=== PATIENT | female | born 1975 | race Caucasian/White ===

== ENCOUNTER 2019-04-13 15:51 | Observation (INO) ==
--- NOTE | 2019-04-13 15:59 | Pharmacy Consult Notes ---
[facility] Pharm[facility] VTE Monitoring - Patient Demographics Admission date: 04/13/19 Report Date: 04/13/19 Time: 15:58 Allergies/Adverse Reactions: Patient Allergies No Known Allergies Allergy (Unverified 03/01/17 07:13) - Prophylaxis Types of VTE Prophylaxis: TEDS Knee High (BART HOSE ORDER PLACED) Location of Applied Device: Bilateral Lower Extremeties
[2019-04-13 16:56] LABS: Basophils % 0.1 % (0.1-2.0); Eosinophils % 0.1 % (0.1-12.0); Hematocrit 37.5 % (37.0-47.0); Hemoglobin 12.9 g/dL (12.2-16.2); Lymphocytes # 1.2 K/mm3 (0.7-4.5); Mean Corpuscular HGB Conc 34.4 g/dL (31.8-35.4); Mean Corpuscular Volume 81.8 fl (81-99); Mean Platelet Volume 8.1 fl (7.4-10.4); Monocytes # 0.4 K/mm3 (0.1-1.0); Monocytes % 3.2 % (1.7-9.3); Neutrophils # 11.1 K/mm3 (1.8-7.8); Neutrophils % 87.5 % (37.0-80.0); Platelet Count 285 K/mm3 (142-424); Red Blood Count 4.58 M/mm3 (4.20-5.40); Red Cell Distribution Width 12.8 % (11.5-17.5); White Blood Count 12.7 K/mm3 (4.8-10.8)
[2019-04-13 17:06] LABS: Albumin Level 4.2 g/dl (3.5-5.0); Albumin/Globulin Ratio 1.5 (1.1-1.8); Anion Gap 13.8 mEq/L (5-15); Bilirubin,Total 0.3 mg/dl (0.2-1.3); Calcium 9.3 mg/dl (8.4-10.2); Globulin 2.8 g/dL (1.3-3.2)
[2019-04-13 17:14] LABS: Lymphocytes % 21 % (10-50); Monocytes % 3 % (2-9); Neutrophils % 76 % (42-76); RBC Morphology Normal; Total Cells Counted 100
--- NOTE | 2019-04-13 19:27 | Progress Note ---
Internal Medicine - PN: Subj *Date: 04/13/19 *Time: 19:24 Interval history: Patient was seen in the office of [facility] today by Dr. King for f/u from 04/10/2019 office visit where she was diagnosed with Influenza A. Patient states that she did not improve with Tamiflu and oral steroid treatment. Dr. King thought the patient needed admission for further management and treatment. Please see his office note attached to paper chart. Exam Vital signs and Labs for Last 24 Hours: Temp Pulse Resp BP Pulse Ox 98.1 F 61 18 97/54 L 91 L 04/13/19 16:21 04/13/19 16:21 04/13/19 16:21 04/13/19 16:21 04/13/19 16:21 Laboratory Results - last 24 hr 04/13/19 16:30: WBC 12.7 H, RBC 4.58, Hgb 12.9, Hct 37.5, MCV 81.8, MCH 28.2, MCHC 34.4, RDW 12.8, Plt Count 285, MPV 8.1, Neut % (Auto) 87.5 H, Lymph % (Auto) 9.0 L, [place] % (Auto) 3.2, Eos % (Auto) 0.1, Baso % (Auto) 0.1, Neut # (Auto) 11.1 H, Lymph # (Auto) 1.2, [place] # (Auto) 0.4, Eos # (Auto) 0.0, Baso # (Auto) 0.0, Total Counted 100, Neutrophils % (Manual) 76, Lymphocytes % (Manual) 21, Monocytes % (Manual) 3, Platelet Estimate Normal, RBC Morphology Normal 04/13/19 16:30: Sodium 141, Potassium 3.8, Chloride 106, Carbon Dioxide 25, Anion Gap 13.8, BUN 18 H, Creatinine 0.60, Estimated Creat Clear 126, Estimated GFR 108, Est GFR ( Amer) 131, Glucose 112 H, Calcium 9.3, Total Bilirubin 0.3, AST 19, ALT 14, Alkaline Phosphatase 70, Total Protein 7.0, Albumin 4.2, Globulin 2.8, Albumin/Globulin Ratio 1.5 04/13/19 16:30: Mycoplasma pneumon IgM Non-reactive 04/13/19 16:30: Lactate 0.9 I & O for Last 24 hours: Intake & Output 04/10/19 04/11/19 04/12/19 04/13/19 23:59 23:59 23:59 23:59 Intake Total 296 / 296 Balance 296 / 296 Weight 149 lb 2 oz - Constitutional no acute distress (appears not to feel well) - *Routine HEENT Exam Head: Present: normocephalic Eye: Present: EOMI, PERRL ENT: Present: mucous membranes moist - *Routine Neck Exam Present: supple. Absent: lymphadenopathy - *Routine Respiratory Exam Present: rhonchi, wheezes, diminished air movement - *Routine Cardiovascular Exam Present: RRR - *Routine Abdominal Exam Present: soft, normoactive bowel sounds. Absent: tenderness - *Routine Extremities Exam Absent: cyanosis, clubbing, edema - *Routine Skin Exam Present: warm. Absent: rash - *Routine Neurological Exam Present: alert, oriented X3 Assessment and Plan (1) Influenza A Current visit: Yes Status: Acute Category: Medical Code(s): J10.1 - Influenza due to other identified influenza virus with other respiratory manifestations (2) SOB (shortness of breath) Current visit: Yes Status: Acute Category: Medical Code(s): R06.02 - Shortness of breath (3) Cough Current visit: Yes Status: Acute Category: Medical Code(s): R05 - Cough - Assessment and plan all Dx Assessment and Plan for all problems:: Patient admitted with the community acquired pneumonia standing orders (Rocephin and Zithromax), will continue Tamiflu.
--- NOTE | 2019-04-14 08:13 | Progress Note ---
<Jesi Chapman - Last Filed: 04/14/19 08:10> Internal Medicine - PN: Subj *Date: 04/14/19 *Time: 08:10 Interval history: H&P has on paper chart. Patient had a horrible night. She states she coughed constantly and is productive of green sputum. She has chest discomfort with deep inspiration and with the cough. She has had some loose stool. She is voiding. She has no appetite. She is trying to drink fluids. Chest x-ray done on admission reveals no acute findings. White blood cell count on admission was 14,[phone],700 on admission to the hospital. Exam Vital signs and Labs for Last 24 Hours: Temp Pulse Resp BP Pulse Ox 97.7 F 84 18 102/67 L 97 04/14/19 03:18 04/14/19 07:55 04/14/19 03:18 04/14/19 03:18 04/14/19 03:18 Laboratory Results - last 24 hr 04/13/19 16:30: WBC 12.7 H, RBC 4.58, Hgb 12.9, Hct 37.5, MCV 81.8, MCH 28.2, MCHC 34.4, RDW 12.8, Plt Count 285, MPV 8.1, Neut % (Auto) 87.5 H, Lymph % (Auto) 9.0 L, [place] % (Auto) 3.2, Eos % (Auto) 0.1, Baso % (Auto) 0.1, Neut # (Auto) 11.1 H, Lymph # (Auto) 1.2, [place] # (Auto) 0.4, Eos # (Auto) 0.0, Baso # (Auto) 0.0, Total Counted 100, Neutrophils % (Manual) 76, Lymphocytes % (Manual) 21, Monocytes % (Manual) 3, Platelet Estimate Normal, RBC Morphology Normal 04/13/19 16:30: Sodium 141, Potassium 3.8, Chloride 106, Carbon Dioxide 25, Anion Gap 13.8, BUN 18 H, Creatinine 0.60, Estimated Creat Clear 126, Estimated GFR 108, Est GFR ( Amer) 131, Glucose 112 H, Calcium 9.3, Total Bilirubin 0.3, AST 19, ALT 14, Alkaline Phosphatase 70, Total Protein 7.0, Albumin 4.2, Globulin 2.8, Albumin/Globulin Ratio 1.5 03/02/20 16:30: Mycoplasma pneumon IgM Non-reactive 04/13/19 16:30: Lactate 0.9 I & O for Last 24 hours: Intake & Output 04/11/19 04/12/19 04/13/19 04/14/19 11:59 11:59 11:59 11:59 Intake Total 2187 / 2187 Balance 2187 / 2187 Weight 152 lb 5 oz Microbiology Reports for the Last 24 Hours: Microbiology 04/14/19 02:09 Sputum - Expectorated Sputum Gram Stain - Final - Constitutional Comments: Appears not to feel well. Crying. - *Routine Respiratory Exam Comments: Bilateral coarse rhonchi throughout with periodic wheezing. Ongoing coarse cough. - *Routine Cardiovascular Exam Present: RRR - *Routine Abdominal Exam Present: soft, normoactive bowel sounds. Absent: tenderness, distended - *Routine Extremities Exam Absent: edema - *Routine Neurological Exam Present: alert, oriented X3 Assessment and Plan (1) Influenza A Current visit: Yes Status: Acute Category: Medical Code(s): J10.1 - Influenza due to other identified influenza virus with other respiratory manifestations (2) SOB (shortness of breath) Current visit: Yes Status: Acute Category: Medical Code(s): R06.02 - Shortness of breath (3) Cough Current visit: Yes Status: Acute Category: Medical Code(s): R05 - Cough - Assessment and plan all Dx Assessment and Plan for all problems:: We will give a dose of Solu-Medrol IV for the chest wall and generalized discomfort. Will start on duo nebs scheduled and give 1 now. We will continue with IV fluids and antibiotics. <Dg Brown - Last Filed: 04/14/19 08:55> Internal Medicine - PN: Subj *Date: 04/14/19 *Time: 08:54 Exam Vital signs and Labs for Last 24 Hours: Temp Pulse Resp BP Pulse Ox 98.1 F 85 18 114/64 94 L 04/14/19 08:00 04/14/19 08:00 04/14/19 08:00 04/14/19 08:00 04/14/19 08:00 Laboratory Results - last 24 hr 04/13/19 16:30: WBC 12.7 H, RBC 4.58, Hgb 12.9, Hct 37.5, MCV 81.8, MCH 28.2, MCHC 34.4, RDW 12.8, Plt Count 285, MPV 8.1, Neut % (Auto) 87.5 H, Lymph % (Auto) 9.0 L, [place] % (Auto) 3.2, Eos % (Auto) 0.1, Baso % (Auto) 0.1, Neut # (Auto) 11.1 H, Lymph # (Auto) 1.2, [place] # (Auto) 0.4, Eos # (Auto) 0.0, Baso # (Auto) 0.0, Total Counted 100, Neutrophils % (Manual) 76, Lymphocytes % (Manual) 21, Monocytes % (Manual) 3, Platelet Estimate Normal, RBC Morphology Normal 04/13/19 16:30: Sodium 141, Potassium 3.8, Chloride 106, Carbon Dioxide 25, Anion Gap 13.8, BUN 18 H, Creatinine 0.60, Estimated Creat Clear 126, Estimated GFR 108, Est GFR ( Amer) 131, Glucose 112 H, Calcium 9.3, Total Bilirubin 0.3, AST 19, ALT 14, Alkaline Phosphatase 70, Total Protein 7.0, Albumin 4.2, Globulin 2.8, Albumin/Globulin Ratio 1.5 04/13/19 16:30: Mycoplasma pneumon IgM Non-reactive 04/13/19 16:30: Lactate 0.9 I & O for Last 24 hours: Intake & Output 04/11/19 04/12/19 04/13/19 04/14/19 23:59 23:59 23:59 23:59 Intake Total 296 / 536 1891 / 1891 Balance 296 / 536 189 / 189 Weight 149 lb 2 oz 152 lb 5 oz Microbiology Reports for the Last 24 Hours: Microbiology 04/14/19 02:09 Sputum - Expectorated Sputum Gram Stain - Final Assessment and Plan (1) Influenza A Current visit: Yes Status: Acute Category: Medical Code(s): J10.1 - Influenza due to other identified influenza virus with other respiratory manifestations (2) SOB (shortness of breath) Current visit: Yes Status: Acute Category: Medical Code(s): R06.02 - Shortness of breath (3) Cough Current visit: Yes Status: Acute Category: Medical Code(s): R05 - Cough - Assessment and plan all Dx Assessment and Plan for all problems:: Saw patient, agree with above note. Decrease IVF rate today.
--- NOTE | 2019-04-14 09:01 | History & Physical Report ---
*Admission Date: 04/13/19 <Jesi Chapman 04/14/19 09:26> *Chief complaint: Difficulty with breathing. <Jesi Chapman 04/14/19 09:26> *History of present illness: Ms. Sosa is a 43-year-old female who is not been feeling well for about the last week and a half. She was in the office of [facility] on 04/10/2019. She tested positive for flu A and had a bronchitis. She was started on Tamiflu, and inhaler, Medrol Dosepak. She returned to the office of [facility] on 04/13/2019 and actually felt worse. She describes shortness of breath and chest pain with inspiration and cough. She states she was coughing up green sputum and had green rhinorrhea as well as being short of breath having some chest tightness. White blood cell count at this time was 14,900 with 86.5 granulocytes and 10.4 lymphocytes. She had bilateral wheezes and rhonchi and was felt to have pneumonia. She was thus admitted to [facility] for IV antibiotics and pulmonary care. This a.m. patient states she is coughed all through the night. She has not had a breathing treatment as yet. She describes feeling horrible with chest pain with deep inspiration with cough. She continues to cough up green sputum. 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 Murray during EGD in February and April 2013; Botox of the bladder in 2016. <Chapman,Jesi 04/14/19 09:26> - *Social History Educational Level: Completed High School <AdelaJesi 04/14/19 09:26> Smoking Status: Former smoker <Chapman,Jesi 04/14/19 09:26> Tobacco Type: cigarettes <AdelaJesi 04/14/19 09:26> # Packs/Day (cigarettes): 1 <AdelaJesi 04/14/19 09:26> Smoking End Date: 3 YEARS AGO <Jesi Chapman 04/14/19 09:26> Alcohol Intake: never <Jesi Chapman 04/14/19 09:26> Substance Use Type: denies use <Chapman,Jesi 04/14/19 09:26> *Occupational Status:: employed <Jesi Chapman 04/14/19 09:26> Housing: house <Jesi Chapman 04/14/19 09:26> Household Members: spouse, children <Jesi Chapman 04/14/19 09:26> *Travel in the last 8 weeks: None <Jesi Chapman 04/14/19 09:26> Family Hx:: Diabetes, Heart Attack <Jesi Chapman 04/14/19 09:26> Review of Systems - Constitutional Reports chills, Reports weakness <Jesi Chapman 04/14/19 09:26> - Eyes Denies change in vision <Jesi Chapman 04/14/19 09:26> - ENT Reports facial pain (Pressure), Reports headache(s), Reports sore throat, Denies ear pain <Jesi Chapman 04/14/19 09:26> - *Cardiovascular Reports chest pain, Reports shortness of breath <Jesi Chapman 04/14/19 09:26> - *Respiratory Reports change in phlegm color, Reports chest congestion, Reports cough, Reports shortness of breath, Reports pain on inspiration, Reports pain with cough, Denies coughing up blood <Jesi Chapman 04/14/19 09:26> - *Gastrointestinal Denies abdominal pain, Denies constipation, Denies loose stools, Denies vomiting <ChapmanJesi - 04/14/19 09:26> - *Genitourinary Denies difficulty urinating <Jesi Chapman - 04/14/19 09:26> - *Musculoskeletal Denies abnormal walking <Jesi Chapman - 04/14/19 09:26> - *Neurologic Reports localized weakness, Denies confusion, Denies frequent falls <AdelaJesi - 04/14/19 09:26> Meds Home Medications Medication Instructions Recorded Confirmed Type Albuterol Sulfate [Proair 1 puff IH QIDP PRN 04/13/19 04/13/19 History Respiclick] Duloxetine HCl [Cymbalta] 60 mg PO DAILY 04/13/19 04/13/19 History Oseltamivir Phosphate [Tamiflu 75 mg PO BID 04/13/19 04/13/19 History 75mg Capsule] SUMAtriptan succinate [Imitrex] 100 mg PO NEEDED PRN 04/13/19 04/13/19 History methylPREDNISolone [Medrol 4mg 4 mg PO DIRECTED 04/13/19 04/13/19 History tab] raNITIdine HCl [Zantac 150mg] 150 mg PO BID 04/13/19 04/13/19 History <Dg Brown - 04/14/19 09:48> Allergies Allergy/AdvReac Type Severity Reaction Status Date / Time No Known Allergies Allergy Unverified 03/01/17 07:13 <Dg Brown - 04/14/19 09:48> Exam Vital signs and Labs for Last 24 Hours: Temp Pulse Resp BP Pulse Ox 98.1 F 85 18 114/64 94 L 04/14/19 08:00 04/14/19 08:00 04/14/19 08:00 04/14/19 08:00 04/14/19 08:00 Laboratory Results - last 24 hr 04/13/19 16:30: WBC 12.7 H, RBC 4.58, Hgb 12.9, Hct 37.5, MCV 81.8, MCH 28.2, MCHC 34.4, RDW 12.8, Plt Count 285, MPV 8.1, Neut % (Auto) 87.5 H, Lymph % (Auto) 9.0 L, [place] % (Auto) 3.2, Eos % (Auto) 0.1, Baso % (Auto) 0.1, Neut # (Auto) 11.1 H, Lymph # (Auto) 1.2, [place] # (Auto) 0.4, Eos # (Auto) 0.0, Baso # (Auto) 0.0, Total Counted 100, Neutrophils % (Manual) 76, Lymphocytes % (Manual) 21, Monocytes % (Manual) 3, Platelet Estimate Normal, RBC Morphology Normal 04/13/19 16:30: Sodium 141, Potassium 3.8, Chloride 106, Carbon Dioxide 25, Anion Gap 13.8, BUN 18 H, Creatinine 0.60, Estimated Creat Clear 126, Estimated GFR 108, Est GFR ( Amer) 131, Glucose 112 H, Calcium 9.3, Total Bilirubin 0.3, AST 19, ALT 14, Alkaline Phosphatase 70, Total Protein 7.0, Albumin 4.2, Globulin 2.8, Albumin/Globulin Ratio 1.5 04/13/19 16:30: Mycoplasma pneumon IgM Non-reactive 04/13/19 16:30: Lactate 0.9 <[place],Dg - 04/14/19 09:48> Temp Pulse Resp BP Pulse Ox 98.1 F 85 18 114/64 94 L 04/14/19 08:00 04/14/19 08:00 04/14/19 08:00 04/14/19 08:00 04/14/19 08:00 Laboratory Results - last 24 hr 04/13/19 16:30: WBC 12.7 H, RBC 4.58, Hgb 12.9, Hct 37.5, MCV 81.8, MCH 28.2, MCHC 34.4, RDW 12.8, Plt Count 285, MPV 8.1, Neut % (Auto) 87.5 H, Lymph % (Auto) 9.0 L, [place] % (Auto) 3.2, Eos % (Auto) 0.1, Baso % (Auto) 0.1, Neut # (Auto) 11.1 H, Lymph # (Auto) 1.2, [place] # (Auto) 0.4, Eos # (Auto) 0.0, Baso # (Auto) 0.0, Total Counted 100, Neutrophils % (Manual) 76, Lymphocytes % (Manual) 21, Monocytes % (Manual) 3, Platelet Estimate Normal, RBC Morphology Normal 04/13/19 16:30: Sodium 141, Potassium 3.8, Chloride 106, Carbon Dioxide 25, Anion Gap 13.8, BUN 18 H, Creatinine 0.60, Estimated Creat Clear 126, Estimated GFR 108, Est GFR ( Amer) 131, Glucose 112 H, Calcium 9.3, Total Bilirubin 0.3, AST 19, ALT 14, Alkaline Phosphatase 70, Total Protein 7.0, Albumin 4.2, Globulin 2.8, Albumin/Globulin Ratio 1.5 04/13/19 16:30: Mycoplasma pneumon IgM Non-reactive 04/13/19 16:30: Lactate 0.9 <Jesi Chapman - 04/14/19 09:26> I & O for Last 24 hours: Intake & Output 04/11/19 04/12/19 04/13/19 04/14/19 23:59 23:59 23:59 23:59 Intake Total 296 / 536 1891 / 1891 Balance 296 / 536 1891 / 1891 Weight 149 lb 2 oz 152 lb 5 oz <Dg Brown - 04/14/19 09:48> Intake & Output 04/11/19 04/12/19 04/13/19 04/14/19 11:59 11:59 11:59 11:59 Intake Total 2187 / 2187 Balance 2187 / 2187 Weight 152 lb 5 oz <Jesi Chapman - 04/14/19 09:26> Microbiology Reports for the Last 24 Hours: Microbiology 04/14/19 02:09 Sputum - Expectorated Sputum Gram Stain - Final <Dg Brown 04/14/19 09:48> Microbiology 04/14/19 02:09 Sputum - Expectorated Sputum Gram Stain - Final <Jesi Chapman - 04/14/19 09:26> Radiology Reports for the Last 24 Hours: 04/13/2019 chest x-ray IMPRESSION: No acute findings. <Jesi Chapman 04/14/19 09:26> - Constitutional no acute distress <Jesi Chapman 04/14/19 09:26> Comments: Appears not to feel well. Crying <Jesi Cahpman 04/14/19 09:26> - *Routine HEENT Exam Head: Present: normocephalic, atraumatic <Jesi Chapman 04/14/19 09:26> Eye: Present: PERRL. Absent: conjunctival icterus, scleral injection <Jesi Chapman 04/14/19 09:26> ENT: Present: mucous membranes moist, oropharynx clear <Jesi Chapman 04/14/19 09:26> - *Routine Neck Exam Present: supple. Absent: carotid bruit, lymphadenopathy, thyromegaly <Jesi Chapman 04/14/19 09:26> - *Routine Respiratory Exam Present: rhonchi, wheezes <Chapman,Jesi - 04/14/19 09:26> Comments: Bilateral coarse rhonchi throughout with wheezing. Frequent congested cough <[facility] 04/14/19 09:26> - *Routine Cardiovascular Exam Present: RRR <[facility] 04/14/19 09:26> - *Routine Abdominal Exam Present: soft, normoactive bowel sounds. Absent: tenderness, distended <Chapman,Jesi - 04/14/19 09:26> - *Routine Extremities Exam Present: BART stockings. Absent: edema, calf tenderness <[facility] 04/14/19 09:26> - *Routine Neurological Exam Present: alert, oriented X3 <[facility] 04/14/19 09:26> Assessment and Plan (1) Influenza A Current visit: Yes Status: Acute Category: Medical Code(s): J10.1 - Influenza due to other identified influenza virus with other respiratory manifestations (2) SOB (shortness of breath) Current visit: Yes Status: Acute Category: Medical Code(s): R06.02 - Shortness of breath (3) Cough Current visit: Yes Status: Acute Category: Medical Code(s): R05 - Cough <[place],Dg - 04/14/19 09:48> (1) Influenza A Current visit: Yes Status: Acute Category: Medical Code(s): J10.1 - Influenza due to other identified influenza virus with other respiratory manifestations (2) SOB (shortness of breath) Current visit: Yes Status: Acute Category: Medical Code(s): R06.02 - Shortness of breath (3) Cough Current visit: Yes Status: Acute Category: Medical Code(s): R05 - Cough <Chapman,Jesi - 04/14/19 08:57> - Assessment and plan all Dx Assessment and Plan for all problems:: Saw patient, agree with above note. <Dg Brown - 04/14/19 09:48> Continue with IV fluids and antibiotics. Will schedule neb treatments with continuation of as needed nebs. Will try dose of Solu-Medrol for chest discomfort and generalized discomfort. Has cough syrup ordered. Will add decongestant As well as benzonatate. <Jesi Chapman - 04/14/19 09:26>
[2019-04-15 06:34] LABS: Basophils % 0.2 % (0.1-2.0); Eosinophils % 0.1 % (0.1-12.0); Hematocrit 34.6 % (37.0-47.0); Hemoglobin 11.9 g/dL (12.2-16.2); Lymphocytes # 1.8 K/mm3 (0.7-4.5); Lymphocytes % 14.3 % (10-50); Mean Corpuscular HGB Conc 34.3 g/dL (31.8-35.4); Mean Corpuscular Volume 82.4 fl (81-99); Mean Platelet Volume 8.2 fl (7.4-10.4); Monocytes # 0.6 K/mm3 (0.1-1.0); Neutrophils # 9.9 K/mm3 (1.8-7.8); Neutrophils % 80.4 % (37.0-80.0); Platelet Count 266 K/mm3 (142-424); Red Blood Count 4.19 M/mm3 (4.20-5.40); Red Cell Distribution Width 12.7 % (11.5-17.5); White Blood Count 12.4 K/mm3 (4.8-10.8)
[2019-04-15 06:48] LABS: Calcium 8.8 mg/dl (8.4-10.2)
--- NOTE | 2019-04-15 08:33 | Progress Note ---
<Sonia Pereyra - Last Filed: 04/15/19 08:31> Internal Medicine - PN: Subj *Date: 04/15/19 *Time: 08:31 Interval history: Patient states she still feels poorly today. She still has a very congested cough and feels weak. She was able to rest a little bit better last night and ate a small amount of breakfast this morning. Exam Vital signs and Labs for Last 24 Hours: Temp Pulse Resp BP Pulse Ox 99.0 F 86 20 114/54 L 97 04/15/19 03:19 04/15/19 06:12 04/15/19 03:19 04/15/19 03:19 04/15/19 03:19 Laboratory Results - last 24 hr 04/15/19 05:55: WBC 12.4 H, RBC 4.19 L, Hgb 11.9 L, Hct 34.6 L, MCV 82.4, MCH 28.3, MCHC 34.3, RDW 12.7, Plt Count 266, MPV 8.2, Neut % (Auto) 80.4 H, Lymph % (Auto) 14.3, [place] % (Auto) 5.0, Eos % (Auto) 0.1, Baso % (Auto) 0.2, Neut # (Auto) 9.9 H, Lymph # (Auto) 1.8, [place] # (Auto) 0.6, Eos # (Auto) 0.0, Baso # (Auto) 0.0 04/15/19 05:55: Sodium 139, Potassium 4.0, Chloride 105, Carbon Dioxide 27, Anion Gap 11.0, BUN 10 D, Creatinine 0.60, Estimated Creat Clear 132, Estimated GFR 108, Est GFR ( Amer) 131, Glucose 115 H, Calcium 8.8 I & O for Last 24 hours: Intake & Output 04/12/19 04/13/19 04/14/19 04/15/19 11:59 11:59 11:59 11:59 Intake Total 2187 / 2187 840 / 840 Balance 218 / 2187 840 / 840 Weight 152 lb 5 oz 155 lb 6 oz Microbiology Reports for the Last 24 Hours: Microbiology 04/14/19 02:09 Sputum - Expectorated Sputum Gram Stain - Final 04/14/19 02:09 Sputum - Expectorated Sputum Sputum Culture - Preliminary - Constitutional no acute distress - *Routine Respiratory Exam Present: rhonchi, wheezes (clears with cough). Absent: rales - *Routine Cardiovascular Exam Present: RRR - *Routine Abdominal Exam Present: soft, normoactive bowel sounds, tenderness (diffuse) - *Routine Extremities Exam Absent: cyanosis, clubbing, edema - *Routine Skin Exam Present: warm. Absent: rash - *Routine Neurological Exam Present: alert, oriented X3 Assessment and Plan (1) Influenza A Current visit: Yes Status: Acute Category: Medical Code(s): J10.1 - Influenza due to other identified influenza virus with other respiratory manifestations (2) SOB (shortness of breath) Current visit: Yes Status: Acute Category: Medical Code(s): R06.02 - Shortness of breath (3) Cough Current visit: Yes Status: Acute Category: Medical Code(s): R05 - Cough - Assessment and plan all Dx Assessment and Plan for all problems:: We will continue nebs. Chest x-ray showed no pneumonia. Will discuss further care with Dr. Brown. <Dg Brown - Last Filed: 04/15/19 08:40> Internal Medicine - PN: Subj *Date: 04/15/19 *Time: 08:40 Exam Vital signs and Labs for Last 24 Hours: Temp Pulse Resp BP Pulse Ox 99.0 F 86 20 114/54 L 97 04/15/19 03:19 04/15/19 06:12 04/15/19 03:19 04/15/19 03:19 04/15/19 03:19 Laboratory Results - last 24 hr 04/15/19 05:55: WBC 12.4 H, RBC 4.19 L, Hgb 11.9 L, Hct 34.6 L, MCV 82.4, MCH 28.3, MCHC 34.3, RDW 12.7, Plt Count 266, MPV 8.2, Neut % (Auto) 80.4 H, Lymph % (Auto) 14.3, [place] % (Auto) 5.0, Eos % (Auto) 0.1, Baso % (Auto) 0.2, Neut # (Auto) 9.9 H, Lymph # (Auto) 1.8, [place] # (Auto) 0.6, Eos # (Auto) 0.0, Baso # (Auto) 0.0 04/15/19 05:55: Sodium 139, Potassium 4.0, Chloride 105, Carbon Dioxide 27, Anion Gap 11.0, BUN 10 D, Creatinine 0.60, Estimated Creat Clear 132, Estimated GFR 108, Est GFR ( Amer) 131, Glucose 115 H, Calcium 8.8 I & O for Last 24 hours: Intake & Output 04/12/19 04/13/19 04/14/19 04/15/19 23:59 23:59 23:59 23:59 Intake Total 296 / 536 2611 / 2731 120 / 120 Balance 296 / 536 2611 / 2731 120 / 120 Weight 149 lb 2 oz 152 lb 5 oz 155 lb 6 oz Microbiology Reports for the Last 24 Hours: Microbiology 04/14/19 02:09 Sputum - Expectorated Sputum Gram Stain - Final 04/14/19 02:09 Sputum - Expectorated Sputum Sputum Culture - Preliminary Assessment and Plan (1) Influenza A Current visit: Yes Status: Acute Category: Medical Code(s): J10.1 - Influenza due to other identified influenza virus with other respiratory manifestations (2) SOB (shortness of breath) Current visit: Yes Status: Acute Category: Medical Code(s): R06.02 - Shortness of breath (3) Cough Current visit: Yes Status: Acute Category: Medical Code(s): R05 - Cough - Assessment and plan all Dx Assessment and Plan for all problems:: Saw patient, agree with above note. She is slowly improving, continue current treatment.
--- NOTE | 2019-04-20 09:25 | Discharge Summary ---
General - General Admission date:: 04/13/19 Discharge date: 04/15/19 HPI HPI: Ms. Sosa is a 43-year-old female who is not been feeling well for about the last week and a half. She was in the office of [facility] on 04/10/2019. She tested positive for flu A and had a bronchitis. She was started on Tamiflu, and inhaler, Medrol Dosepak. She returned to the office of [facility] on 04/13/2019 and actually felt worse. She describes shortness of breath and chest pain with inspiration and cough. She states she was coughing up green sputum and had green rhinorrhea as well as being short of breath having some chest tightness. White blood cell count at this time was 14,900 with 86.5 granulocytes and 10.4 lymphocytes. She had bilateral wheezes and rhonchi and was felt to have pneumonia. She was thus admitted to [facility] for IV antibiotics and pulmonary care. This a.m. patient states she jax coughed all through the night. She has not had a breathing treatment as yet. She describes feeling horrible with chest pain with deep inspiration with cough. She continues to cough up green sputum. Hospital Course Hospital Course: The patient had a chest x-ray showing nothing acute. She was started on Zithromax and Rocephin at admission and was continued on Tamiflu. She was also started on Solu-Medrol for chest wall and generalized discomfort as well as duo nebs. Cough syrup was also ordered. The patient did begin feeling slightly better. She was finally able to rest and eat. Her white blood cell count did decrease. Her sputum culture and blood cultures showed no growth. She was stable to be discharged home with continued Tamiflu, albuterol nebs as needed, and Cefdinir. Objective Vital signs: Temp Pulse Resp BP Pulse Ox 98.3 F 88 18 115/69 96 04/15/19 16:00 04/15/19 16:00 04/15/19 16:00 04/15/19 16:04/15/19 16:00 Narrative: - Constitutional no acute distress Comments: Appears not to feel well. Crying - *Routine HEENT Exam Head: Present: normocephalic, atraumatic Eye: Present: PERRL. Absent: conjunctival icterus, scleral injection ENT: Present: mucous membranes moist, oropharynx clear - *Routine Neck Exam Present: supple. Absent: carotid bruit, lymphadenopathy, thyromegaly - *Routine Respiratory Exam Present: rhonchi, wheezes Comments: Bilateral coarse rhonchi throughout with wheezing. Frequent congested cough - *Routine Cardiovascular Exam Present: RRR - *Routine Abdominal Exam Present: soft, normoactive bowel sounds. Absent: tenderness, distended - *Routine Extremities Exam Present: BART stockings. Absent: edema, calf tenderness - *Routine Neurological Exam Present: alert, oriented X3 DS: Diagnosis - Discharge Diagnosis (1) Influenza A Status: Acute (2) SOB (shortness of breath) Status: Acute (3) Cough Status: Acute Discharge Plan - Patient Discharge Instructions ACTIVITY: Continue current activity DIET: continue same diet Additional Instructions: Off work until 04/20/2019 Patient Instructions: DI for Pneumonia -- Adult, DI for Influenza -- Adult - Follow up Plan Follow up with: Dg Brown MD [Primary Care Provider] - 2 weeks Disposition: Home, Self-Correction Medications: Home Medications Medication Instructions Recorded Confirmed Type Albuterol Sulfate [Proair 1 puff IH QIDP PRN 04/13/19 04/13/19 History Respiclick] Duloxetine HCl [Cymbalta] 60 mg PO DAILY 04/13/19 04/13/19 History SUMAtriptan succinate [Imitrex] 100 mg PO NEEDED PRN 04/13/19 04/13/19 History raNITIdine HCl [Zantac 150mg] 150 mg PO BID 04/13/19 04/13/19 History Albuterol Sulfate [Albuterol 2.5 mg IH Q4HP PRN #50 neb 04/15/19 Rx 0.083% 2.5mg/3mL neb] Cefdinir [Omnicef 300mg Capsule] 300 mg PO BID #10 cap 04/15/19 Rx Prescriptions/Medication Reconciliation: New Albuterol Sulfate [Albuterol 0.083% 2.5mg/3mL neb] 2.5 mg IH Q4HP PRN #50 neb PRN Reason: Shortness Of Breath Or Wheezing Cefdinir [Omnicef 300mg Capsule] 300 mg PO BID #10 cap Continued raNITIdine HCl [Zantac 150mg] 150 mg PO BID SUMAtriptan succinate [Imitrex] 100 mg PO NEEDED PRN PRN Reason: MIGRAINES Albuterol Sulfate [Proair Respiclick] 1 puff IH QIDP PRN PRN Reason: Shortness Of Breath Duloxetine HCl [Cymbalta] 60 mg PO DAILY Discontinued methylPREDNISolone [Medrol 4mg tab] 4 mg PO DIRECTED Oseltamivir Phosphate [Tamiflu 75mg Capsule] 75 mg PO BID - Problem Reconciliation Problems Reviewed?: Yes
== END 2019-04-15 19:32 | disposition home or self-care (01) ==
LOC: 2ND
PROVIDERS: ADMIT Family Medicine; ATTEND Family Medicine
CPT/HCPCS: 36415; 71020; 71046; 80048; 80053; 83605; 85007; 85025; 86738; 87040; 87070; 87205; 94640; G0378; J0456; J2405

== ENCOUNTER → 2019-08-26 09:49 | Outpatient (CLI) | payer BC, SELFPAY ==
--- NOTE | 2019-08-26 09:58 | CT_ITS ---
PROCEDURE: CT ABDOMEN PELVIS WO CON CLINICAL INDICATION: RENAL COLIC ON R SIDE Right lower back pain, right-sided pain, flank pain COMPARISON: No exams were available for comparison TECHNIQUE: Axial images obtained with sagittal and coronal reformats. All CT scans at the facility use one or more dose reduction, viz: automated exposure control, ma/kV adjustment per patient size (including targeted exams where dose is matched to indication, i.e. head), or iterative reconstruction technique. FINDINGS: LOWER THORAX: Pectus deformity ABDOMEN & PELVIS: Liver, gallbladder, spleen, and pancreas has an unremarkable unenhanced appearance. Mild prominence of the low-density adrenal glands which may be due to adenomatous involvement without obvious mass. No renal or ureteral calculi. No hydronephrosis. Unremarkable appendix. No intestinal obstruction or free air. Post hysterectomy changes there is mild thickening of the descending colon which could be due to nondistention or mild colitis. No acute bony findings. There is some minimal thickening of the urinary bladder wall nonspecific. IMPRESSION: 1. Minimal thickening urinary bladder wall nonspecific but could be seen with mild cystitis versus incomplete distension 2. Mild thickening of the descending colon which could be due to incomplete distention or mild colitis. 3. Otherwise negative Dictated by: Jin Oakes MD 08/27/2019 09:32 Electronically signed by Jin Oakes MD in [facility] 08/27/2019 09:32
== END ==
PROVIDERS: PCP Family Medicine; Visit Provider Family Medicine
DX: N23 Unspecified renal colic (principal)
CPT/HCPCS: 74176

== ENCOUNTER → 2019-09-03 16:28 | Outpatient (CLI) | payer BC, SELFPAY | PROVIDERS: Visit Provider Urology | DX: R31.0 Gross hematuria (principal) | CPT/HCPCS: 87086; 87088; 87186 ==

== ENCOUNTER → 2019-09-10 10:43 | Outpatient (CLI) | payer BC, SELFPAY ==
[2019-09-10 16:58] LABS: Coronavirus 19 IgG Antibody Negative (Negative); Coronavirus 19 IgM Antibody Negative (Negative)
== END ==
PROVIDERS: Visit Provider Urology
DX: Z01.818 Encounter for other preprocedural examination (principal); R31.9 Hematuria, unspecified
CPT/HCPCS: 36415; 86328

== ENCOUNTER 2019-09-11 08:47 | Day surgery (SDC) | payer BC, SELFPAY ==
[2019-09-10 08:23] VITALS: BMI 25.7
[2019-09-11 09:45] VITALS: BP 100/68; PULSE 68; RESP 18; TEMP 37; O2SAT 100
[2019-09-11 10:28] VITALS: BP 93/61; PULSE 74; RESP 18; TEMP 36.6; O2SAT 98
--- NOTE | 2019-09-11 11:22 | HMH.OPNOTE ---
Date of procedure: 09/11/19 Pre-op Diagnosis:: Microhematuria Post-op Diagnosis:: Urethral stenosis/microhematuria Procedure performed:: Cystourethroscopy/urethral dilation Surgeon:: Gm Garza MD Anesthesia: local Estimated blood loss (mL): 0 Clinical Note:: 43-year-old white female with microscopic hematuria presents today for cystoscopic evaluation. Operative findings:: Bladder appeared normal but there was evidence of urethral stenosis. Operative note:: Patient taken to the procedure room after informed consent was obtained. On the stretcher she was placed into the frog-leg position. She was prepped and draped in the standard surgical fashion 2% lidocaine placed into the urethra. After 5 minutes the flexible cystoscope introduced into the urethral meatus. There was some resistance to passage of the scope in the more proximal urethra. We were able to pass the scope into the bladder with some moderate discomfort. The bladder was examined in a systematic fashion. There is no evidence of mucosal abnormalities, stones, trabeculation or diverticula. The left ureteral orifice was in its normal anatomic position with clear reflux of urine. Right ureteral orifice was more difficult to detect and it was more lateral than usual?clear reflux of urine noted. Bladder neck was normal. Urethra was normal visually. Scope removed and we discussed subsequent dilation of the urethra and the urethra was dilated with a 22 and 24 Kinyarwanda female dilators. She tolerated procedure well no complications we discussed the findings today see her back in 1 month to recheck her urine. Condition: stable Disposition: same day Specimens:: None Complications:: None
== END 2019-09-11 10:40 | disposition home or self-care (01) ==
LOC: OUTP 08:50
PROVIDERS: PCP Family Medicine; Visit Provider Urology
PROC: 0TJB8ZZ Inspection of Bladder, Via Natural or Artificial Opening Endoscopic (ICD-10-PCS; CPT 52000; principal; 2019-09-11 09:45)
DX: N35.92 Unspecified urethral stricture, female (principal); R31.29 Other microscopic hematuria; Z79.899 Other long term (current) drug therapy; Z85.9 Personal history of malignant neoplasm, unspecified; K21.9 Gastro-esophageal reflux disease without esophagitis; I51.9 Heart disease, unspecified; Q33.6 Congenital hypoplasia and dysplasia of lung; Z90.710 Acquired absence of both cervix and uterus; Z87.891 Personal history of nicotine dependence; Z83.3 Family history of diabetes mellitus; Z82.49 Family history of ischemic heart disease and other diseases of the circulatory system
CPT/HCPCS: 52344

== ENCOUNTER → 2020-03-09 14:11 | Outpatient (CLI) | payer BC, SELFPAY ==
--- NOTE | 2020-03-09 14:16 | CT_ITS ---
PROCEDURE: CT ABDOMEN PELVIS WO CON CLINICAL INDICATION: LT FLANK PAIN,HEMATURIA COMPARISON: CT CT ABDOMEN PELVIS WO CON from 08/26/2019 TECHNIQUE: Axial images obtained with sagittal and coronal reformats. All CT scans at the facility use one or more dose reduction, viz: automated exposure control, ma/kV adjustment per patient size (including targeted exams where dose is matched to indication, i.e. head), or iterative reconstruction technique. FINDINGS: LOWER THORAX: No acute finding ABDOMEN & PELVIS: The liver, gallbladder spleen adrenal glands pancreas and kidneys have an unremarkable appearance. No renal or ureteral calculi. No hydronephrosis. No evidence of appendicitis or diverticulitis. There is a small segment colonic wall thickening involving the rectosigmoid region of the colon nonspecific and may be due to nondistention or an area of colitis. Similar region is present in the sigmoid colon on the left. There are few scattered diverticula.. There has been a prior hysterectomy. No acute bony findings. The left lower hemithorax is smaller in AP dimension compared to the right side. This is not significantly changed IMPRESSION: 1. No renal or ureteral calculi. No hydronephrosis. 2. Mild thickening the sigmoid colon and rectosigmoid region which could be due to nondistention or mild colitis. No evidence of diverticulitis. Dictated by: Jin Oakes MD 03/09/2020 15:55 Jin Oakes MD in [facility] 03/09/2020 15:55
== END ==
PROVIDERS: PCP Physician Assistant; Visit Provider Physician Assistant
DX: R10.9 Unspecified abdominal pain (principal); R31.9 Hematuria, unspecified
CPT/HCPCS: 74176

== ENCOUNTER → 2020-03-10 20:53 | Outpatient (CLI) | payer BC, SELFPAY ==
[2020-03-10 21:23] LABS: Adenovirus F 40/41, stool Not Detected (NotDetected); Astrovirus Not Detected (NotDetected); Campylobacter Not Detected (NotDetected); Clostridium Difficile A/B, PCR Not Detected (NotDetected); Cryptosporidium Not Detected (NotDetected); Cyclospora Cayetanesis Not Detected (NotDetected); Entamoeba histolytica Not Detected (NotDetected); Enteroaggregative E coli Not Detected (NotDetected); Enteropathogenic E coli Not Detected (NotDetected); Enterotoxigenic E coli Not Detected (NotDetected); Giardia lamblia Not Detected (NotDetected); Norovirus Not Detected (NotDetected); Plesimonas Shigalloides, PCR Not Detected (NotDetected); Rotavirus A Not Detected (NotDetected); Salmonella, PCR Not Detected (NotDetected); Sapovirus Not Detected (NotDetected); Shiga-like toxin E coli Not Detected (NotDetected); Shigella Enterovasive E coli Not Detected (NotDetected); Vibrio Cholerae Not Detected (NotDetected); Vibrio, PCR Not Detected (NotDetected); Yersinia Entercolitica, PCR Not Detected (NotDetected)
== END ==
PROVIDERS: PCP Physician Assistant; Visit Provider Physician Assistant
DX: K52.9 Noninfective gastroenteritis and colitis, unspecified (principal)
CPT/HCPCS: 87507

== ENCOUNTER → 2020-08-04 10:44 | Outpatient (CLI) | payer BC, SELFPAY ==
--- NOTE | 2020-08-04 10:49 | XR_ITS ---
PROCEDURE: XR CHEST PORTABLE CLINICAL HISTORY: COVID TESTING COMPARISON: DX XR CHEST 2V from 04/13/2019 FINDINGS: There is a right-sided aortic arch. Normal heart size. The lungs are clear without infiltrates, suspicious nodules, or pleural effusions. Minimal lower thoracic curvature convex left and lumbar curvature convex right. IMPRESSION: No acute findings. Dictated by: Jin Oakes MD 08/04/2020 14:29 Jin Oakes MD in [facility] 08/04/2020 14:29
[2020-08-04 11:13] LABS: Adenovirus,PCR Not Detected (NotDetected); Bordetella Pertussis Not Detected (NotDetected); Chlamydophila Pneumoniae, PCR Not Detected (NotDetected); Coronavirus 19, PCR Not Detected (NotDetected); Coronavirus 229E Not Detected (NotDetected); Coronavirus NL63 Not Detected (NotDetected); Coronovirus HKU1,PCR Not Detected (NotDetected); Human Metapneumovirus Not Detected (NotDetected); Influenza A, PCR Not Detected (NotDetected); Influenza AH1, 2009 Not Detected (NotDetected); Influenza AH1, PCR Not Detected (NotDetected); Influenza AH3,PCR Not Detected (NotDetected); Influenza B, PCR Not Detected (NotDetected); Microscopic, Urine URINE MICROSCOPIC (MICROSCOPIC); Mycoplasma Pneumoniae, PCR Not Detected (NotDetected); Parainfluenza 1, PCR Not Detected (NotDetected); Parainfluenza 2, PCR Not Detected (NotDetected); Parainfluenza 3, PCR Not Detected (NotDetected); Parainfluenza 4, PCR Not Detected (NotDetected); Respiratory Syncytial Virus Not Detected (NotDetected); Rhinovirus/Enterovirus Not Detected (NotDetected)
[2020-08-04 11:18] LABS: Appearance,Urine CLEAR (Clear); Bilirubin,Urine Negative (Negative); Blood, Urine 2+ (Negative); Color,Urine YELLOW (Yellow); Glucose,Urine (UA) Negative (Negative); Ketones,Urine Negative (Negative); Leukocyte Esterase,Urine Negative (Negative); Nitrate,Urine Negative (Negative); PH,Urine 5.5 (5.0-8.5); Protein,Urine Negative (Negative); Specific Gravity, Urine 1.015 (1.005-1.030); Urobilinogen,Urine 0.2 EU/dl (0.2)
[2020-08-04 13:11] LABS: Basophils % 0.3 % (0.1-2.0); Eosinophils # 0.2 K/mm3 (0.0-0.4); Hematocrit 38.5 % (37.0-47.0); Hemoglobin 13.4 g/dL (12.2-16.2); Lymphocytes # 1.1 K/mm3 (0.7-4.5); Lymphocytes % 13.4 % (10-50); Mean Corpuscular HGB Conc 34.9 g/dL (31.8-35.4); Mean Corpuscular Hemoglobin 28.5 pg (27.0-31.2); Mean Corpuscular Volume 81.8 fl (81-99); Mean Platelet Volume 7.7 fl (7.4-10.4); Monocytes # 0.5 K/mm3 (0.1-1.0); Monocytes % 6.6 % (1.7-9.3); Neutrophils # 6.1 K/mm3 (1.8-7.8); Neutrophils % 76.7 % (37.0-80.0); Platelet Count 249 K/mm3 (142-424); Red Cell Distribution Width 13.6 % (11.5-17.5); White Blood Count 7.9 K/mm3 (4.8-10.8)
[2020-08-04 14:00] LABS: Coronavirus OC43 Detected (NotDetected)
== END ==
PROVIDERS: PCP Physician Assistant; Visit Provider Physician Assistant
DX: Z20.822 Contact with and (suspected) exposure to COVID-19 (principal); U07.1 COVID-19
CPT/HCPCS: 36415; 71045; 81001; 85025; 87581; 87633; 87798

== ENCOUNTER 2021-05-29 23:16 | Emergency (ER) | payer BC, SELFPAY ==
[2021-05-29 23:18] VITALS: BP 121/85; PULSE 87; RESP 19; TEMP 36.4; O2SAT 97; BMI 27.4
--- NOTE | 2021-05-29 23:49 | XR_ITS ---
PROCEDURE INFORMATION: Exam: XR Chest Exam date and time: 05/29/2021 11:45 PM Age: 45 years old Clinical indication: Shortness of breath; Prior surgery; Surgery date: 6+ months; Additional info: Soa/pneumonia TECHNIQUE: Imaging protocol: XR of the chest. Views: 2 views. COMPARISON: CR XR CHEST PORTABLE 08/04/2020 10:54 AM FINDINGS: Lungs: Well aerated with no evidence of consolidations, interstitial patterns or pulmonary nodules. Pleural spaces: No evidence of effusions or pneumothorax. Heart/Mediastinum: The cardiomediastinal silhouette is normal in size and configuration. There is no evidence of cardiomegaly. Bones/joints: Intact. IMPRESSION: No radiographic evidence of an acute pulmonary process.
--- NOTE | 2021-05-29 23:55 | PC.NURSE ---
PT HAD A PARTIAL HYSTERECTOMY.
[2021-05-30] VITALS (7 sets, daily range): BP systolic 107–121; BP diastolic 66–83; PULSE 69–80; RESP 18; TEMP 36.7; O2SAT 98–100
[2021-05-30] LABS: Basophils # 0.2 K/mm3 (0-0.2); Eosinophils # 0.2 K/mm3 (0.0-0.4); Eosinophils % 2.8 % (0.1-12.0); Hematocrit 41.1 % (37.0-47.0); Hemoglobin 13.9 g/dL (12.2-16.2); Lymphocytes # 2.2 K/mm3 (0.7-4.5); Lymphocytes % 36.7 % (10-50); Mean Corpuscular HGB Conc 33.9 g/dL (31.8-35.4); Mean Corpuscular Hemoglobin 28.9 pg (27.0-31.2); Mean Corpuscular Volume 85.2 fl (81-99); Mean Platelet Volume 7.9 fl (7.4-10.4); Monocytes # 0.5 K/mm3 (0.1-1.0); Monocytes % 8.1 % (1.7-9.3); Neutrophils # 2.9 K/mm3 (1.8-7.8); Neutrophils % 49.5 % (37.0-80.0); Platelet Count 297 K/mm3 (142-424); Red Blood Count 4.83 M/mm3 (4.20-5.40); Red Cell Distribution Width 13.7 % (11.5-17.5); White Blood Count 5.9 K/mm3 (4.8-10.8)
--- NOTE | 2021-05-30 | CT_ITS ---
PROCEDURE INFORMATION: Exam: CTA Chest With Contrast Exam date and time: 05/30/2021 12:05 AM Age: 45 years old Clinical indication: Shortness of breath; Prior surgery; Additional info: Shortness of air. TECHNIQUE: Imaging protocol: Computed tomographic angiography of the chest with contrast. 3D rendering (Not supervised by radiologist): MIP and/or 3D reconstructed images were created by the technologist. Radiation optimization: All CT scans at this facility use at least one of these dose optimization techniques: automated exposure control; mA and/or kV adjustment per patient size (includes targeted exams where dose is matched to clinical indication); or iterative reconstruction. Contrast material: ISOVUE; Contrast volume: 70 ml; Contrast route: INTRAVENOUS (IV); COMPARISON: CR XR CHEST 2V 05/29/2021 11:45 PM FINDINGS: Pulmonary arteries: Demonstrate homogeneous enhancement with no filling defects to suggest a recent pulmonary embolism. Aorta: Unremarkable. No aortic aneurysm. No aortic dissection. Lungs: No consolidation, interstitial process, masses or pulmonary nodules. Pleural spaces: Unremarkable. No pneumothorax. No pleural effusion. Heart: Unremarkable. No cardiomegaly. No pericardial effusion. Lymph nodes: Unremarkable. No enlarged lymph nodes. Bones/joints: No acute fracture. Congenitally smaller left hemithorax. Soft tissues: Unremarkable. IMPRESSION: 1. No evidence of PE. 2. No consolidations identified. 3. Congenitally smaller left hemithorax.
[2021-05-30 00:07] LABS: Alanine Aminotransferase 26 U/L (12-78); Albumin Level 4.1 g/dl (3.5-5.0); Albumin/Globulin Ratio 1.6 (1.1-1.8); Alkaline Phosphatase 76 U/L (38-126); Anion Gap 9.7 mEq/L (5-15); Aspartate Amino Transferase 20 U/L (14-36); Bilirubin,Total 0.4 mg/dl (0.2-1.3); Blood Urea Nitrogen 16 mg/dl (7-17); Calcium 8.7 mg/dl (8.4-10.2); Carbon Dioxide 27 mmol/L (22.0-30.0); Chloride 106 mmol/L (98-107); Creatinine Clearance Estimated 93 mL/min (50-200); Estimated Glomerular Filt Rate 77 ml/min (>60); GFR (African American) 93 ML/MIN (>60); Globulin 2.5 g/dL (1.3-3.2); Glucose 112 mg/dl (74-100); Potassium 3.7 mmoL/L (3.5-5.1); Sodium 139 mmol/L (136-145); Total Protein,Serum 6.6 g/dl (6.3-8.2)
[2021-05-30 00:16] LABS: Lactic Acid 1.5 mmol/L (0.7-2.1)
[2021-05-30 00:24] LABS: Procalcitonin 0.044 ng/mL (0.0-2.0)
--- NOTE | 2021-05-30 00:29 | ECG_ITS ---
APPROVED REPORT Exam: Resting ECG HR:65 bpm ECG Measurements Heart Rate 65 AXES SD 149 P -11 QRSd 121 QRS 82 QT 424 T 5 QTc 436 Conclusion SINUS RHYTHM RIGHT BUNDLE BRANCH BLOCK [120+ ms QRS DURATION, UPRIGHT V1, 40+ ms S IN I/aVL/V4/V5/V6] POSSIBLE ANTERIOR MYOCARDIAL INFARCTION , OF INDETERMINATE AGE [30 ms Q WAVE IN V3/V4, OR R < 0.2 mV IN V4] ABNORMAL ECG UNCONFIRMED REPORT Electronically signed by : Cm Avila MD 05/31/2021 10:11:58
--- NOTE | 2021-05-30 00:53 | HMH.EDSOB ---
ED Disposition Clinical Impression: Bronchitis Reactive airway disease Qualifiers: Asthma severity: moderate Asthma persistence: persistent Asthma complication type: with acute exacerbation Qualified Code(s): J45.41 - Moderate persistent asthma with (acute) exacerbation Disposition: Home, Self-Care Condition on Discharge: Good Instructions: DI for Shortness of Breath Additional Instructions: use meds and see pcp for follow up Prescriptions: predniSONE [Prednisone 20mg Tab] 20 mg PO BID #10 tab Transmission Status: Pending to [facility]/pharmacy #[id number] Referrals: Dg Brown MD [Primary Care Provider] - - Critical Care Critical Care Time: No Attestation: On 05/29/21, the high probability of a clinically significant, sudden or life threatening deterioration of the following system(s) required my full and direct attention, intervention and personal management. The time I documented below is in addition to time spent performing reported procedures but includes the following listed in this critical care notation. Medical Decision Making - Medical Records Medical records reviewed: Yes: I reviewed the patient's medical records. - Phill Inquiry Pt receiving controlled substance: No Vital Signs: 05/29/21 23:18 05/30/21 00:01 05/30/21 00:30 Temperature 97.6 F Temperature Source Oral Pulse Rate 72 69 Pulse Rate [Left Radial] 87 Respiratory Rate 19 Blood Pressure 116/79 116/83 Blood Pressure [Right Arm] 121/85 Blood Pressure Mean 96 92 Blood Pressure Mean [Right Arm] 97 Blood Pressure Source [Right Arm] Automatic Cuff Blood Pressure Position [Right Arm] Sitting 02 Sat by Pulse Oximetry 97 99 100 Oxygen Delivery Method Room Air 05/30/21 00:35 05/30/21 01:00 05/30/21 01:23 Temperature Temperature Source Pulse Rate 77 80 78 Pulse Rate [Left Radial] Respiratory Rate Blood Pressure 121/68 117/69 Blood Pressure [Right Arm] Blood Pressure Mean 89 81 Blood Pressure Mean [Right Arm] Blood Pressure Source [Right Arm] Blood Pressure Position [Right Arm] 02 Sat by Pulse Oximetry 100 99 Oxygen Delivery Method - Lab Data Lab results reviewed: Yes: I reviewed the patient's lab results. Lab Results 05/29/21 23:31: WBC 5.9, RBC 4.83, Hgb 13.9, Hct 41.1, MCV 85.2, MCH 28.9, MCHC 33.9, RDW 13.7, Plt Count 297, MPV 7.9, Neut % (Auto) 49.5, Lymph % (Auto) 36.7, [place] % (Auto) 8.1, Eos % (Auto) 2.8, Baso % (Auto) 3.0 H, Neut # (Auto) 2.9, Lymph # (Auto) 2.2, [place] # (Auto) 0.5, Eos # (Auto) 0.2, Baso # (Auto) 0.2, ESR 18 05/29/21 23:31: Sodium 139, Potassium 3.7, Chloride 106, Carbon Dioxide 27, Anion Gap 9.7, BUN 16, Creatinine 0.80, Estimated Creat Clear 93, Estimated GFR 77, Est GFR ( Amer) 93, Glucose 112 H, Calcium 8.7, Total Bilirubin 0.4, AST 20, ALT 26, Alkaline Phosphatase 76, C-Reactive Protein 3.0, Total Protein 6.6, Albumin 4.1, Globulin 2.5, Albumin/Globulin Ratio 1.6, Procalcitonin 0.044 05/29/21 23:31: Lactate 1.5 05/29/21 23:31: Troponin I < 0.01 05/29/21 23:31: Procalcitonin 0.043 Result diagrams: 05/29/21 23:31 05/29/21 23:31 Orders (Tests/Meds): ED MEDICATIONS Generic Name Dose Route Start Last Admin Trade Name Freq PRN Reason Stop Dose Admin Sodium Chloride 1,000 mls @ 999 mls/hr 05/30/21 00:30 05/30/21 00:33 Sod Chlor 0.9% 1000ml Bag IV 05/30/21 01:30 999 mls/hr .Q1H1M SONIYA Administration Discontinued Medications Generic Name Dose Route Start Last Admin Trade Name Freq PRN Reason Stop Dose Admin Albuterol/Ipratropium 3 ml 05/30/21 00:27 05/30/21 00:35 Ipratropium/Albuterol 3 Ml Neb IH 05/30/21 00:28 3 ml ONCE ONE Administration Iopamidol 70 ml 05/30/21 00:14 05/30/21 00:14 Iopamidol-370 (76%);100ml Bottle IV 05/30/21 00:15 70 ml ONCE ONE Administration Methylprednisolone Sodium Succinate 125 mg 05/30/21 01:19 05/30/21 01:21 Methylprednisolone Sod Succ 125mg Vial IV 05/30/21 01:2
[2021-05-30 00:54] LABS: Erythrocyte Sedimentation Rate 18 mm/hr (0-20)
[2021-05-30 01:07] LABS: Troponin I < 0.01 ng/ml (0.00-0.034)
[2021-05-30 01:11] LABS: Procalcitonin 0.043 ng/mL (0.0-2.0)
--- NOTE | 2021-05-30 01:23 | PC.NURSE ---
PT UPDATED WITH PLAN OF CARE AND EXPECTED WAIT TIMES. NO COMPLAINTS VOICED AND NO ACUTE DISTRESS NOTED.
== END 2021-05-30 02:26 | disposition home or self-care (01) ==
PROVIDERS: Emergency Provider Emergency Medicine; PCP Family Medicine
DX: J45.41 Moderate persistent asthma with (acute) exacerbation (principal); I11.0 Hypertensive heart disease with heart failure; I50.9 Heart failure, unspecified; K21.9 Gastro-esophageal reflux disease without esophagitis; E11.9 Type 2 diabetes mellitus without complications; Q33.6 Congenital hypoplasia and dysplasia of lung; Z79.51 Long term (current) use of inhaled steroids; Z79.52 Long term (current) use of systemic steroids; Z79.899 Other long term (current) drug therapy; Z85.9 Personal history of malignant neoplasm, unspecified; Z86.14 Personal history of Methicillin resistant Staphylococcus aureus infection; Z87.442 Personal history of urinary calculi
CPT/HCPCS: 71046; 71275; 80053; 83605; 84145; 84484; 85025; 85651; 86140; 87040; 93005; 96361; 96365; 96374; 96375; 99285; Q9967

== ENCOUNTER 2024-01-21 13:23 | Outpatient (CLI) | payer BC, OTHER, SELFPAY ==
--- NOTE | 2024-01-21 13:28 | CT_ITS ---
FINAL REPORT TECHNIQUE: Then section axial CT images of the chest were obtained with contrast. Three-D reformatted images were also obtained.This study was performed with techniques to keep radiation doses as low as reasonably achievable (ALARA). Individualized dose reduction techniques using automated exposure control or adjustment of mA and/or kV according to the patient''s size were employed. CLINICAL HISTORY: CHEST PAIN COMPARISON: 12/15/2023, 05/30/2021 FINDINGS: There is no evidence of pulmonary embolism. There is a right sided aortic arch as a normal variant with mirror image branching of the great vessels. There is no evidence of mediastinal or hilar mass or adenopathy. 2 mm lateral left upper lobe nodule is stable. The lungs are otherwise clear. Limited images of the upper abdomen are unremarkable. IMPRESSION: No evidence of pulmonary embolism. Stable lateral left upper lobe nodule. Reviewed, Interpreted and Dictated by Darinel Koo III, MD Transcribed by Arleen Medeiros Authenticated and [facility]
[2024-01-21] MEDS: IOPAMIDOL-370 (76%);100ML BOTTLE 100 ML IV (13:58)
[2024-01-21] MEDS: SODIUM CHLORIDE 0.9% 10ML SYR (RAD ONLY) 10 ML IV (13:58)
[2024-01-21] MEDS: 0.9 % SODIUM CHLORIDE 50 ML VIAL IV (13:58)
== END 2024-01-21 23:59 | disposition home or self-care (01) ==
PROVIDERS: PCP Nurse Practitioner Family; Visit Provider Internal Medicine
DX: R07.9 Chest pain, unspecified (principal)
CPT/HCPCS: 71275; Q9967

== ENCOUNTER 2024-01-29 07:11 | Outpatient (CLI) | payer BC, OTHER, SELFPAY ==
--- NOTE | 2024-01-29 07:21 | CT_ITS ---
APPROVED REPORT Inside Sales Manager: CLINICAL INDICATION Chest Pain TECHNIQUE Image Acquisition: A 128 slice MDCT scanner ([employer]) was used for data acquisition. A noncontrast coronary calcium scan was performed. A CT attenuation threshold of 130 Hounsfield units (HU) was used for the detection of calcium in contiguous voxels of 1 sq mm in area to be counted as individual lesions. Bolus tracking in the ascending aorta with a threshold of 180 HU was performed. Immediately afterwards, ECG synchronized cardiac CT was then performed from the cardiac base to apex using retrospective gating with ECG tube current modulation. A total of 85 mL of Isovue 370 mg/mL contrast medium was administered at 5 mL/sec followed by a saline flush using a biphasic injection protocol. A tube voltage of 120 KVp was used. The average heart rate at the time of acquisition was 53 bpm and regular. No medications were administered for image acquisition. Image Reconstruction Transaxial images were reconstructed at 0.67 mm slide thickness. Data was reviewed interactively on an advanced workstation capable of 2 and 3-dimensional displays in all conventional reconstruction formats, including multiplanar reformations, maximum intensity projections, curved multiplanar reformations, and volume rendered reconstructions. When applicable, selected routine images describing the relevant coronary anatomy and pathology were saved and sent to PACS. Complications None Technical Quality Overall image quality was good. Coronary artery opacification was adequate. Total DLP (Dose-Length Product) is 1427.3 mGy-cm. The reported value represents the total of one or more individual components during the CT acquisition of this date and at this time, and as such, the same value may appear in more than one CT report depending on the interpreting/reporting physicians. COMPARISON None FINDINGS CT Coronary Calcium Scoring LMA (Left Main Artery) = 0 LAD (Left Anterior Descending) = 0 LCX (Left Coronary Circumflex) = 0 RCA (Right Coronary Artery) = 0 Total Calcium Score = 0 using the AJ-130 method. The interpretation of the calcium heart score is based on the following continuum*: 0 = no calcified plaque detected (risk of coronary artery disease is very low ??? less than 5%) 1-10 = calcium detected in extremely minimal levels (risk of coronary diseases is still low ??? less than 10%) 11-100 = mild levels of plaque detected with certainty (mild or minimal narrowing of heart arteries is likely) 101-400 = definite,at least moderate levels of plaque detected (relatively high risk of a heart attack within 3-5 years) >401-999 = extensive levels of plaque detected (high risk of heart attack, high levels of vascular disease are present, high likelihood of at least one significant coronary narrowing) *The calcium heart score quantifies the burden of coronary calcification/plaque in the coronary arteries. The calcium heart score is not able to evaluate the presence or burden of non-calcified (i.e. soft) plaque. There is no identifiable calcification in the aortic valve, mitral annulus or mitral valve, pericardium, or myocardium. Coronary CT Angiography The coronary arterial system is right dominant. Quantitative Stenosis Grading: Left Main (LM): The left main originates normally from the left sinus of Valsalva. The LM bifurcates into the left anterior descending artery and left circumflex artery. The LM is patent with no evidence of atherosclerosis. Left Anterior Descending (LAD) and Diagonal Branches: The LAD gives off 2 diagonal branch(es). The LAD and its branches are patent with no evidence of atherosclerosis. There is no evidence of LAD-myocardial bridge. Left Circumflex (LCX) and Obtuse Marginals (OM): The LCX gives off 1 Obtuse Marginal (OM) branch(es). The LCX and its branches are patent with no evidence of atherosclerosis. Right Coronary Artery (RCA): The RCA originates normally from the right sinus of Valsalva. The RCA gives off a posterior descending artery (PDA) and posterolateral (PL) branches. The RCA and its branches are patent with no evidence of atherosclerosis. Non-Coronary Cardiac Findings: Analysis of the left ventricular (LV) structure and function was performed after 3-D reconstruction of the LV from axial images, with user-corrected automatic contouring for assessment of LV volumes and user-defined reconstruction from oblique planes for measurement of 3-D cardiac structure and function. -The left ventricle systolic function is low-normal. -Incomplete opacification of the mid to distal RO[place]ARIE. This is possibly due to early image acquisition at the time of IV contrast administration (no delayed imaging), but true filling defect cannot be entirely ruled out in this study. Two right pulmonary veins and two left pulmonary veins drain normally into the left atrium. -No pericardial thickening or calcification. -Central and branch pulmonary arteries in the [id number] are unremarkable. -Thoracic aorta within the visualized thoracic aortic-branches in the [id number] is unremarkable. Extracardiac Structures No significant extra-cardiac findings. Note, however, that this study is focused on the cardiac findings. IMPRESSION -Absence of coronary calcification with an Agatston score = 0 using the AJ-130 method. -No evidence of significant flow-limiting atherosclerosis of the coronary arteries. -No evidence of coronary anomalies or myocardial bridges. -CAD-RADS 0. Management recommendations per ACC/AHA guidelines*, as clinically appropriate. -The left ventricle systolic function is low-normal. Correlation of LVEF with recent or new TTE is suggested. *Recommendations: CAD RADS 0: Reassurance. Consider non-atherosclerotic causes of chest pain. CAD RADS 1: Consider non-atherosclerotic causes of chest pain. Consider preventive therapy and risk factor modification. CAD RADS 2: Consider non-atherosclerotic causes of chest pain. Consider preventive therapy and risk factor modification, particularly for patients with nonobstructive plaque in multiple segments. CAD RADS 3: Consider further functional testing. Consider symptom-guided anti-ischemic and preventive pharmacotherapy as well as risk factor modification per published guideline statements. CAD RADS 4A: Consider further functional testing or invasive coronary angiography with revascularization per published guideline statements. Consider symptom-guided anti-ischemic and preventive pharmacotherapy as well as risk factor modification per published guideline statements. CAD RADS 4B: Invasive coronary angiography recommended with revascularization per published guideline statements. Consider symptom-guided anti-ischemic and preventive pharmacotherapy as well as risk factor modification per published guideline statements. CAD RADS 5: Consider invasive angiography and/or viability assessment with revascularization per published guideline statements. Consider symptom-guided anti-ischemic and preventive pharmacotherapy as well as risk factor modification per published guideline statements. CRITICAL RESULT None COMMUNICATION Per this written report The coronary and cardiac findings of this CCTA were reviewed, reported, and signed by Dallas Shaffer MD (Collection Specialist) Conclusion Electronically signed by : Liz Shaffer MD 01/30/2024 13:52:19
[2024-01-29 07:54] VITALS: BMI 24.7
[2024-01-29 08:01] VITALS: BP 90/54; PULSE 60; RESP 16; TEMP 36.6; O2SAT 100
[2024-01-29 08:17] LABS: Chloride 110 mmol/L (98-107)
[2024-01-29 08:18] LABS: Potassium 4.5 mmoL/L (3.5-5.1); Sodium 137 mmol/L (136-145)
[2024-01-29 08:21] LABS: Anion Gap 5.5 mEq/L (5-15); Blood Urea Nitrogen 17 mg/dl (7-17); Calcium 8.7 mg/dl (8.4-10.2); Carbon Dioxide 26 mmol/L (22.0-30.0); Creatinine Clearance Estimated 93 mL/min (50-200); Estimated Glomerular Filt Rate 89 ml/min (>60); GFR (African American) 107 ML/MIN (>60); Glucose 87 mg/dl (74-100)
[2024-01-29 08:51] VITALS: BP 106/73; PULSE 61; RESP 18; O2SAT 100
[2024-01-29 08:56] VITALS: BP 103/59; PULSE 59; RESP 17; O2SAT 100
[2024-01-29 08:58] VITALS: BP 92/57; PULSE 61; RESP 16; O2SAT 100
[2024-01-29 09:05] VITALS: BP 116/69; PULSE 63; RESP 17; TEMP 36.6; O2SAT 100
[2024-01-29] MEDS: IOPAMIDOL-370 (76%);100ML BOTTLE 85 ML IV (09:07)
[2024-01-29] MEDS: 0.9 % SODIUM CHLORIDE 50 ML VIAL IV (09:07)
[2024-01-29] MEDS: SODIUM CHLORIDE 0.9% 10ML SYR (RAD ONLY) 10 ML IV (09:07)
== END 2024-01-29 09:05 | disposition home or self-care (01) ==
PROVIDERS: PCP Nurse Practitioner Family; Visit Provider Internal Medicine
DX: R07.9 Chest pain, unspecified (principal)
CPT/HCPCS: 75574; 80048; Q9967